=== PATIENT | male | born 1945 | race Caucasian/White ===

== ENCOUNTER 2017-11-27 15:41 | Emergency (ER) | payer MEDICARE ==
[2017-11-27 16:48] VITALS: BP 100/55
== END 2017-11-27 16:57 | disposition home or self-care (01) ==
LOC: ED 15:41
DX: J44.9 Chronic obstructive pulmonary disease, unspecified (principal); R91.8 Other nonspecific abnormal finding of lung field; R06.00 Dyspnea, unspecified; I10 Essential (primary) hypertension; Z86.711 Personal history of pulmonary embolism

== ENCOUNTER 2022-06-06 10:52 | Inpatient (IN) | payer MEDICARE ==
[~2022-06-06] VITALS: Ht 182.9 cm; Wt 145.0 kg
[2022-06-06] VITALS (88 sets, daily range): BP systolic 63–134; BP diastolic 43–73
[~2022-06-06 10:52] MED LIST: ANORO ELLIPTA 61 AER IN; ARICEPT PO; ASPIRIN325 MG PO; OMEPRAZOLE20 MG PO; SIMVASTATIN40 MG PO; VENLAFAXINE100 MG PO; VENTOLIN HFA108 MCG
[2022-06-06 11:19] LABS: IMMATURE GRANULOCYTES 0.6 % (0.0-5.0); MEAN CORPUSCULAR HGB 25.8 pG CALC (26.0-32.0); MEAN CORPUSCULAR HGB CONC 31.5 g/dL CAL (32.0-36.0); NEUT# 12.39 thou/uL (1.82-7.42); RED BLOOD COUNT 4.5 mill/uL (4.70-6.10); RED CELL DISTRI WIDTH 19.6 % (11.5-15.5)
[2022-06-06 11:20] LABS: HEMATOCRIT 36.8 % (39.0-50.0); HEMOGLOBIN 11.6 g/dl (14.0-18.0); MEAN CELL VOLUME 81.8 fL CALC (80.0-100.0)
[2022-06-06 11:44] LABS: ALBUMIN 3.7 g/dL (3.2-5.0); ALKALINE PHOSPHATASE 70 u/l (38-126); ANION GAP 14 (6-22 (CALC)); BILIRUBIN, TOTAL 0.6 mg/dL (0.0-1.4); BUN 32 mg/dL (8-23); BUN/CREATININE RATIO 19 (12-20 (CALC)); CARBON DIOXIDE 25 mmol/l (22-30); CHLORIDE 100 mmol/l (95-108); CREATININE 1.7 mg/dL (0.7-1.3); GFR FOR AFR.AMER. 48 ML/MIN (>=60 (CALC)); GFR OTHER RACES 39 ML/MIN (>=60 (CALC)); POTASSIUM 4.4 mmol/l (3.5-5.1); SGOT/AST 17 u/l (19-48); SODIUM 134 mmol/l (137-146); TOTAL PROTEIN 7.5 g/dL (6.3-8.2)
[2022-06-06] MEDS ORDERED: BUMETANIDE1 MG PO (12:08)
[2022-06-06] MEDS ORDERED: DILTIAZEM120 M2 PO (12:09)
[2022-06-06] MEDS ORDERED: HYDRALAZINE50 MG PO (12:10)
[2022-06-06] MEDS ORDERED: ISOSORB MONO30 MG PO (12:10)
[2022-06-06] MEDS ORDERED: DOXYCYCL HYC100 M4 PO (12:10)
[2022-06-06] MEDS ORDERED: FUROSEMIDE20 MG PO (12:10)
[2022-06-06] MEDS ORDERED: LOSARTAN POTASS50 MG PO (12:11)
[2022-06-06] MEDS ORDERED: JANUVIA50 MG PO (12:11)
[2022-06-06] MEDS ORDERED: METOPROL TAR25 MG PO ×2 (12:12→14:13)
[2022-06-06] MEDS ORDERED: LOSARTAN POTASS1 TA4 (12:12)
[2022-06-06] MEDS ORDERED: TAMSULOSIN HCL0.4 MG PO (12:13)
[2022-06-06] MEDS ORDERED: SPIRONOLACTONE25 MG PO (12:13)
[2022-06-06] MEDS ORDERED: XARELTO10 MG PO ×2 (12:14→14:10)
[2022-06-06] MEDS ORDERED: TOPROL XL50 MG PO (19:51)
[2022-06-07] VITALS (22 sets, daily range): BP systolic 98–166; BP diastolic 58–98
[2022-06-07 01:04] LABS: URINE BILIRUBIN - DIPSTICK NEGATIVE (NEGATIVE); URINE BLOOD DIPSTICK SMALL (NEGATIVE); URINE COLOR YELLOW; URINE GLUCOSE - DIPSTICK NEGATIVE (NEGATIVE); URINE KETONE NEGATIVE (NEGATIVE); URINE LEUK ESTERASE NEGATIVE (NEGATIVE); URINE PH 5.5 (4.5-8.0); URINE PROTEIN - DIPSTICK TRACE mg/dL (NEG-TRACE); URINE UROBILINOGEN - DIPSTICK 0.2 E.U./dL (0.2)
[2022-06-07 01:09] LABS: URINE NITRITE - DIPSTICK NEGATIVE (Negative)
[2022-06-07 01:24] LABS: URINE RBC 0-2 RBC/hpf (0-5); URINE SQUAMOUS EPITHELIAL CELL FEW EPI/hpf (0-FEW)
[2022-06-07 05:18] LABS: HEMATOCRIT 33.2 % (39.0-50.0); HEMOGLOBIN 10.6 g/dl (14.0-18.0); MEAN CELL VOLUME 81.8 fL CALC (80.0-100.0); MEAN CORPUSCULAR HGB 26.1 pG CALC (26.0-32.0); MEAN CORPUSCULAR HGB CONC 31.9 g/dL CAL (32.0-36.0); RED BLOOD COUNT 4.06 mill/uL (4.70-6.10); RED CELL DISTRI WIDTH 19.4 % (11.5-15.5)
[2022-06-07 05:39] LABS: ALBUMIN 3.1 g/dL (3.2-5.0); ALKALINE PHOSPHATASE 64 u/l (38-126); ANION GAP 14 (6-22 (CALC)); BILIRUBIN, TOTAL 0.4 mg/dL (0.0-1.4); BUN 32 mg/dL (8-23); BUN/CREATININE RATIO 24 (12-20 (CALC)); CARBON DIOXIDE 24 mmol/l (22-30); CHLORIDE 104 mmol/l (95-108); CREATININE 1.3 mg/dL (0.7-1.3); GFR FOR AFR.AMER. > 60 ML/MIN (>=60 (CALC)); GFR OTHER RACES 54 ML/MIN (>=60 (CALC)); POTASSIUM 4.3 mmol/l (3.5-5.1); SGOT/AST 18 u/l (19-48); SODIUM 137 mmol/l (137-146); TOTAL PROTEIN 6.3 g/dL (6.3-8.2)
[2022-06-08] VITALS (12 sets, daily range): BP systolic 115–155; BP diastolic 73–91
[2022-06-08 05:53] LABS: HEMATOCRIT 35.6 % (39.0-50.0); HEMOGLOBIN 11.3 g/dl (14.0-18.0); MEAN CORPUSCULAR HGB CONC 31.7 g/dL CAL (32.0-36.0); RED BLOOD COUNT 4.34 mill/uL (4.70-6.10); RED CELL DISTRI WIDTH 19.6 % (11.5-15.5)
[2022-06-08 06:13] LABS: ANION GAP 15 (6-22 (CALC)); BUN 26 mg/dL (8-23); BUN/CREATININE RATIO 21 (12-20 (CALC)); CARBON DIOXIDE 25 mmol/l (22-30); CHLORIDE 104 mmol/l (95-108); CREATININE 1.2 mg/dL (0.7-1.3); GFR FOR AFR.AMER. > 60 ML/MIN (>=60 (CALC)); GFR OTHER RACES 59 ML/MIN (>=60 (CALC)); MAGNESIUM 2.1 mg/dL (1.6-2.3); POTASSIUM 4.4 mmol/l (3.5-5.1); SODIUM 139 mmol/l (137-146)
[2022-06-08] MEDS ORDERED: STIOLTO RESPIMA1 AER IN (13:39)
== END 2022-06-08 15:40 | disposition short-term general hospital (02) | DRG 194 ==
LOC: ED 10:52 → ED-I 16:00 → MS2 16:08 → ED 16:08 → ICU 20:38
PROVIDERS: Internal Medicine; ADMIT Internal Medicine; ATTEND Internal Medicine
DX: J18.9 Pneumonia, unspecified organism (principal); J44.0 Chronic obstructive pulmonary disease with (acute) lower respiratory infection; I48.0 Paroxysmal atrial fibrillation; I11.0 Hypertensive heart disease with heart failure; I50.9 Heart failure, unspecified; E11.9 Type 2 diabetes mellitus without complications; J39.8 Other specified diseases of upper respiratory tract; Z86.711 Personal history of pulmonary embolism; G47.30 Sleep apnea, unspecified; Z79.01 Long term (current) use of anticoagulants; Z87.891 Personal history of nicotine dependence; Z20.822 Contact with and (suspected) exposure to COVID-19
CPT/HCPCS: Q9967